=== PATIENT | male | born 1970 | race African-American/Black ===

== ENCOUNTER 2019-10-04 09:04 | Emergency (ER) | payer SELFPAY ==
[2019-10-04 09:41] LABS: ABSOLUTE BASOPHILS # (AUTO) 0.1 10^3/uL (0.0-0.2); ABSOLUTE EOSINOPHILS # (AUTO) 0.1 10^3/uL (0.0-0.6); ABSOLUTE LYMPHOCYTES (AUTO) 1.5 10^3/uL (0.5-4.7); ABSOLUTE MONOCYTES (AUTO) 0.4 10^3/uL (0.1-1.4); ABSOLUTE NEUT (AUTO) 3.7 10^3/uL (1.7-8.2); BASOPHILS % (AUTO) 1.1 % (0-2); EOSINOPHILS % (AUTO) 2.3 % (0-6); HEMATOCRIT 44.7 % (37.9-51.0); HEMOGLOBIN 15.2 g/dL (13.5-17.0); LYMPHOCYTES % (AUTO) 25.9 % (13-45); MEAN CORPUSCULAR HEMOGLOBIN 30.4 pg (27.0-33.4); MEAN CORPUSCULAR HGB CONC 33.9 g/dL (32.0-36.0); MEAN CORPUSCULAR VOLUME 90 fl (80-97); MONOCYTES % (AUTO) 6.9 % (3-13); PLATELET COUNT 335 10^3/uL (150-450); RED BLOOD COUNT 4.99 10^6/uL (4.35-5.55); RED CELL DISTRIBUTION WIDTH 14.4 % (11.5-14.0); SEGMENTED NEUTROPHILS % (AUTO) 63.8 % (42-78); TOTAL CELLS COUNTED % (AUTO) 100 %; WHITE BLOOD COUNT 5.7 10^3/uL (4.0-10.5)
--- NOTE | 2019-10-04 09:51 | ER Document Report ---
ED Medical Screen (RME) - General Chief Complaint: Abdominal Pain Stated Complaint: LOWER ABDOMINAL PAIN Time Seen by Provider: 10/04/19 09:36 Notes: Patient is a 49-year-old male who presents emergency department with a chief complaint of umbilical pain. Patient reports he developed umbilical pain while resting last night. Patient reports it feels like a pulling. Patient reports there is slight radiation downward into the lower abdomen. Patient denies nausea, vomiting or diarrhea. Patient has fever. Patient denies urinary symptoms. Patient denies recent heavy lifting or injury. Patient reports significant tenderness to this area. TRAVEL OUTSIDE OF THE [place] IN LAST 30 DAYS: No Past Medical History - Social History Frequency of alcohol use: Occasional Physical Exam - Vital signs Vitals: Temp Pulse Resp BP Pulse Ox 98.5 F 79 16 130/64 H 96 10/04/19 09:08 10/04/19 09:08 10/04/19 09:08 10/04/19 09:08 10/04/19 09:08 - Abdominal Inspection: Normal Distension: No distension Bowel sounds: Normal Tenderness: Tender - Tenderness over the umbilical region. Organomegaly: No organomegaly Course - Re-evaluation Re-evalutation: 10/04/19 09:51 I have greeted and performed a rapid initial assessment of this patient. A comprehensive ED assessment and evaluation of the patient, analysis of test results and completion of the medical decision making process will be conducted by additional ED providers. - Vital Signs Vital signs: Temp Pulse Resp BP Pulse Ox 98.5 F 79 16 130/64 H 96 10/04/19 09:08 10/04/19 09:08 10/04/19 09:08 10/04/19 09:08 10/04/19 09:08 - Laboratory Result Diagrams: 10/04/19 09:26 10/04/19 09:26 Laboratory results interpreted by me: 10/04/19 09:26 RDW 14.4 H
[2019-10-04 10:02] LABS: ALBUMIN 4.3 g/dL (3.5-5.0); ALKALINE PHOSPHATASE 74 U/L (38-126); ANION GAP 8 (5-19); ASPARTATE AMINO TRANSFERASE 25 U/L (17-59); BILIRUBIN,DIRECT 0.1 mg/dL (0.0-0.4); BILIRUBIN,TOTAL 0.3 mg/dL (0.2-1.3); BLOOD UREA NITROGEN 12 mg/dL (7-20); CALCIUM 9.6 mg/dL (8.4-10.2); CARBON DIOXIDE 26 mmol/L (22-30); CHLORIDE 109 mmol/L (98-107); GLUCOSE 105 mg/dL (75-110); POTASSIUM 4.2 mmol/L (3.6-5.0); TOTAL PROTEIN 7.4 g/dL (6.3-8.2)
[2019-10-04 10:28] LABS: APPEARANCE,URINE CLEAR; BILIRUBIN,URINE NEGATIVE (NEGATIVE); COLOR,URINE STRAW; GLUCOSE, URINE NEGATIVE (NEGATIVE); KETONES,URINE NEGATIVE (NEGATIVE); LEUKOCYTE ESTERASE,URINE NEGATIVE (NEGATIVE); NITRITE,URINE NEGATIVE (NEGATIVE); PROTEIN,URINE NEGATIVE (NEGATIVE); URINE SPECIFIC GRAVITY 1.004; UROBILINOGEN,URINE NEGATIVE mg/dL (<2.0)
[2019-10-04] MEDS ORDERED: DICYCLOMINE HCL 20 MG TABLET PO ONE (10:36)
--- NOTE | 2019-10-04 11:57 | ER Document Report ---
ED General - General Chief Complaint: Abdominal Pain Stated Complaint: LOWER ABDOMINAL PAIN Time Seen by Provider: 10/04/19 09:36 Notes: 49 year old male with h/o gerd at time presents with a few days of worsening mid abd pain. Achey and crampy pain moves down in the midline of his abdomen. No chronic medical illness reported although he tells me he stopped etoh drinking a few weeks ago due to abd pain when he does drink some beer. No fever or chills. No nausea or vomiting or diarrhea. No abd surgery. Does not go to the doctor. TRAVEL OUTSIDE OF THE [place] IN LAST 30 DAYS: No - HPI Onset/Duration: Gradual Quality of pain: No pain Severity: Moderate Associated symptoms: None Exacerbated by: Denies Relieved by: Denies - Related Data Allergies/Adverse Reactions: No Known Allergies Allergy (Unverified 10/04/19 10:54) Past Medical History - Social History Smoking Status: Unknown if Ever Smoked Frequency of alcohol use: Occasional Family History: Reviewed & Not Pertinent Patient has suicidal ideation: No Patient has homicidal ideation: No Review of Systems - Review of Systems Constitutional: No symptoms reported EENT: No symptoms reported Cardiovascular: No symptoms reported Respiratory: No symptoms reported Gastrointestinal: No symptoms reported Genitourinary: No symptoms reported Male Genitourinary: No symptoms reported Musculoskeletal: No symptoms reported Skin: No symptoms reported Hematologic/Lymphatic: No symptoms reported Neurological/Psychological: No symptoms reported Physical Exam - Vital signs Vitals: Temp Pulse Resp BP Pulse Ox 98.5 F 79 16 130/64 H 96 10/04/19 09:08 10/04/19 09:08 10/04/19 09:08 10/04/19 09:08 10/04/19 09:08 Interpretation: Normal - General General appearance: Appears well, Alert - HEENT Head: Normocephalic, Atraumatic Eyes: Normal Pupils: PERRL - Respiratory Respiratory status: No respiratory distress Chest status: Nontender Breath sounds: Normal Chest palpation: Normal - Cardiovascular Rhythm: Regular Heart sounds: Normal auscultation Murmur: No - Abdominal Inspection: Normal Distension: No distension Bowel sounds: Normal Tenderness: Tender Organomegaly: No organomegaly - Back Back: Normal, Nontender - Extremities General upper extremity: Normal inspection, Nontender, Normal color, Normal ROM, Normal temperature General lower extremity: Normal inspection, Nontender, Normal color, Normal ROM, Normal temperature, Normal weight bearing. No: Kelsey's sign - Neurological Neuro grossly intact: Yes Cognition: Normal Orientation: AAOx4 Oneal Coma Scale Eye Opening: Spontaneous Oneal Coma Scale Verbal: Oriented Oneal Coma Scale Motor: Obeys Commands Weiner Coma Scale Total: 15 Speech: Normal Motor strength normal: LUE, RUE, LLE, RLE Sensory: Normal - Psychological Associated symptoms: Normal affect, Normal mood - Skin Skin Temperature: Warm Skin Moisture: Dry Skin Color: Normal Course - Re-evaluation Re-evalutation: 10/04/19 14:36 MDM 49 year old male does not go to doctor. Mid abd pain. Workup benign. Discussed follow up and hernia possible. - Vital Signs Vital signs: Temp Pulse Resp BP Pulse Ox 97.6 F 70 16 132/53 H 97 10/04/19 14:33 10/04/19 14:33 10/04/19 14:33 10/04/19 14:33 10/04/19 14:33 - Laboratory Result Diagrams: 10/04/19 09:26 10/04/19 09:26 Laboratory results interpreted by me: 10/04/19 10/04/19 09:26 09:26 RDW 14.4 H Chloride 109 H - Diagnostic Test Radiology reviewed: Reports reviewed Discharge - Discharge Clinical Impression: Abdominal pain Qualifiers: Abdominal location: unspecified location Qualified Code(s): R10.9 - Unspecified abdominal pain Condition: Good Disposition: HOME, SELF-CARE Instructions: Abdominal Pain ([facility]), Antispasmodics ([facility]), Family Physicians / P ractices Additional Instructions: Call your primary doctor or referral doctor in follow up. Take the medicine as directed. Please return here for any problems or concern.s Prescriptions: Dicyclomine HCl [Bentyl 20 mg Tablet] 20 mg PO QID #40 tablet Ibuprofen [Motrin 600 mg Tablet] 600 mg PO TID #30 tablet Forms: Smoking Cessation Education, Return to Work
--- NOTE | 2019-10-04 12:45 | RADIOLOGY REPORT (SQ) ---
EXAM DESCRIPTION: U/S ABDOMEN LIMITED W/O DOP COMPLETED DATE/TIME: 10/04/2019 12:26 pm REASON FOR STUDY: umbilical pain COMPARISON: None. TECHNIQUE: Dynamic and static grayscale images acquired of the localized site of clinical concern an d recorded on PACS. Additional selected color Doppler and spectral images recorded. SITE OF CONCERN: Periumbilical LIMITATIONS: None. FINDINGS: SKIN AND SUBCUTANEOUS TISSUES: There is a small area mildly hypoechoic to the adjacent fat measuring approximately 1.3 x 0.4 x 1.0 cm in the periumbilical region just superior to the umbilicu s which appears to protrude through a defect in the fascia. This was reportedly reducible. DEEP SOFT TISSUES/MUSCLES: Unremarkable visualize rectus. VASCULAR: Not visualized. OTHER: No other significant finding. IMPRESSION: Likely 1.3 x 1.0 x 0.4 cm small periumbilical fat containing hernia. This lesion was re portedly reducible. TECHNICAL DOCUMENTATION: JOB ID: [id number] [employer]- All Rights Reserved Reading location - IP/workstation name: [email or web address]
[2019-10-04] MEDS ORDERED: HYDROCODONE/ACETAMINOPHEN 5-325 MG TABLET PO ONE (13:37)
[2019-10-04 14:33] VITALS: BP 132/53
== END 2019-10-04 14:41 | disposition home or self-care (01) ==
LOC: ER 09:04
DX: R10.9 Unspecified abdominal pain (principal); R10.30 Lower abdominal pain, unspecified
CPT/HCPCS: 99284; 36415; 83690; 85025; 80053; 81001; 76705; J3490